=== PATIENT | male | born 1995 | race Caucasian/White ===

== ENCOUNTER 2019-01-18 06:22 | Emergency (ER) | payer OTHER ==
[~2019-01-18] VITALS: Ht 180.3 cm; Wt 100.5 kg
[2019-01-18 06:25] VITALS: BP 139/72
--- NOTE | 2019-01-18 06:49 | NUR ---
REPORT GIVEN TO MARKIE DOYLE.
--- NOTE | 2019-01-18 06:50 | NUR ---
REPORT FROM EDITH DOYLE, ASSUME CARE OF PT AT THS TIME.
--- NOTE | 2019-01-18 06:59 | NUR ---
XR AT BS
== END 2019-01-18 08:31 | disposition home or self-care (01) ==
LOC: ED 08:00
DX: S63.622A Sprain of interphalangeal joint of left thumb, initial encounter (principal); G89.11 Acute pain due to trauma; F17.200 Nicotine dependence, unspecified, uncomplicated; Y08.89XA Assault by other specified means, initial encounter; Y93.89 Activity, other specified; Y92.89 Other specified places as the place of occurrence of the external cause; Y99.8 Other external cause status
CPT/HCPCS: 99283